=== PATIENT | male | born 1955 | race Caucasian/White ===

== ENCOUNTER 2019-05-10 17:20 | Inpatient (IN) ==
[2019-05-10 18:09] LABS: Basophils # 0.1 K/mcL (0.0-0.2); Basophils % 1.1 %; Eosinophils % 0.7 %; Hematocrit 33.8 % (37.5-50.1); Hemoglobin 11.9 g/dL (12.9-16.9); Immature Granulocytes % 0.5 % (0-4); Lymphocytes # 2.2 K/mcL (0.6-4.6); Lymphocytes % 35.5 %; Mean Corpuscular HGB Conc 35.2 g/dL (31.6-35.5); Mean Corpuscular Hemoglobin 36.3 pg (28.0-33.3); Mean Platelet Volume 10.2 fL (9.4-12.4); Monocytes # 0.9 K/mcL (0.0-1.3); Monocytes % 15.1 %; Neutrophils # 2.9 K/mcL (1.6-8.9); Platelet Count 181 K/mcL (140-400); Red Blood Count 3.28 M/mcL (4.19-5.50); Red Cell Distribution Width 13.3 % (11.5-14.5); Segmented Neutrophils % 47.1 %; White Blood Count 6.1 K/mcL (4.3-11.1)
[2019-05-10] MEDS ORDERED: Tdap (Boostrix) Vaccine 0.5 ML SYRINGE IM ONE (18:17)
[2019-05-10 18:21] LABS: Bilirubin,Urine Negative (Negative); Blood,Urine Negative (Negative); Clarity,Urine Clear (Clear); Color,Urine Yellow (Yellow); Glucose,Urine (UA) Normal (Normal); Ketones,Urine Negative (Negative); Leukocyte Esterase,Urine Negative (Negative); Nitrite,Urine Negative (Negative); PH,Urine 6.5 pH Units (5.0-8.0); Protein,Urine Negative (Neg-Trace); Urobilinogen,Urine Normal (Normal)
[2019-05-10 18:54] LABS: Amphetamine Screen,Urine Negative ng/mL (Cutoff=1000); Barbiturate Screen,Urine Negative ng/mL (Cutoff=200); Benzodiazepines Screen,Urine Negative ng/mL (Cutoff=200); Cannabinoid Screen,Urine Negative ng/mL (Cutoff = 50); Cocaine Screen,Urine Negative ng/mL (Cutoff= 300); Opiate Screen,Urine Negative ng/mL (Cutoff=300); Phencyclidine Screen,Urine Negative ng/mL (Cutoff=25)
[2019-05-10 18:58] LABS: Acetaminophen < 10 mcg/mL (10-20); BUN/Creatinine Ratio 9 (6-26); Blood Urea Nitrogen 4 mg/dL (8-23); Calcium 8.3 mg/dL (8.6-10.3); Carbon Dioxide 21 mEq/L (23-29); Chloride 107 mEq/L (98-107); Chol/HDL Ratio 2.8 (0-4.9); Cholesterol 164 mg/dL (< 200); Ethanol 432 mg/dL (Less than 10); Glucose 78 mg/dL (70-105); HDL Cholesterol 59 mg/dL (40-59); LDL Cholesterol,Calculated 93 mg/dL (0-99); Osmolality,Calculated 284 (280-300); Potassium 3.7 mEq/L (3.5-5.1); Salicylate < 2.5 mg/dL (15.0-30.0); Sodium 139 mEq/L (136-145); Triglycerides 61 mg/dL (< 150); eGFR For African Americans > 60 (> 60); eGFR For Non-African Americans > 60 (> 60)
[2019-05-10 19:02] LABS: Estimated Average Glucose 111 mg/dl
[2019-05-10] MEDS ORDERED: *HR* OxyCODONE/APAP 10/325 TABLET PO PRN (23:08)
[2019-05-10] MEDS ORDERED: clonazePAM 1 MG TABLET PO PRN (23:08)
[2019-05-10] MEDS ORDERED: traZODone 50 MG TABLET PO PRN (23:08)
[2019-05-10] MEDS ORDERED: Ondansetron 4 MG/2 ML VIAL IVP PRN (23:11)
[2019-05-10] MEDS ORDERED: *HR* LORazepam 2 MG/ML VIAL IVP PRN ×3 (23:14)
[2019-05-10] MEDS ORDERED: *HR* Promethazine 25 MG/ML VIAL IVP PRN (23:14)
[2019-05-10] MEDS: Ringers Solution, Lactated 1,000 ML IVC SCH (23:47)
[2019-05-10] MEDS: Gabapentin 300 MG CAPSULE PO SCH (23:50)
[2019-05-11] MEDS: Ringers Solution, Lactated 1,000 ML IVC SCH (05:00)
[2019-05-11] MEDS: *HR* Heparin 5,000 UNIT/ML VIAL SQ SCH ×2 (06:17→18:38)
[2019-05-11 08:53] LABS: BUN/Creatinine Ratio 13 (6-26); Blood Urea Nitrogen 6 mg/dL (8-23); Calcium 7.8 mg/dL (8.6-10.3); Carbon Dioxide 23 mEq/L (23-29); Chloride 108 mEq/L (98-107); Ethanol 81 mg/dL (Less than 10); Glucose 67 mg/dL (70-105); Magnesium 1.4 mg/dL (1.6-2.6); Osmolality,Calculated 290 (280-300); Phosphorous 3.3 mg/dL (2.7-4.5); Sodium 142 mEq/L (136-145); eGFR For African Americans > 60 (> 60); eGFR For Non-African Americans > 60 (> 60)
[2019-05-11] MEDS: Cholecalciferol (D-3) 1,000 UNIT (25MCG) TABLET PO SCH (09:30)
[2019-05-11] MEDS: Thiamine (B-1) 100 MG TABLET PO SCH (09:30)
[2019-05-11] MEDS: Magnesium Oxide 400 MG TABLET PO SCH (09:30)
[2019-05-11] MEDS: Gabapentin 300 MG CAPSULE PO SCH ×3 (09:31→20:04)
[2019-05-11] MEDS: Aspirin Enteric Coated 81 MG Tablet PO SCH (09:39)
[2019-05-11] MEDS: Folic Acid 1 MG TABLET PO SCH (09:39)
[2019-05-11] MEDS: Metoprolol XL (24 HR) Succ 25 MG TAB.ER.24H PO SCH (09:40)
[2019-05-11] MEDS: Vitamin B Complex/Vit C/Vit E 1 EACH TABLET PO SCH (09:40)
[2019-05-12 05:06] LABS: Basophils % 0.6 %; Eosinophils # 0.1 K/mcL (0.0-0.6); Eosinophils % 1.3 %; Hematocrit 30.3 % (37.5-50.1); Hemoglobin 10.5 g/dL (12.9-16.9); Immature Granulocytes % 0.5 % (0-4); Lymphocytes # 1.7 K/mcL (0.6-4.6); Lymphocytes % 26.6 %; Mean Corpuscular HGB Conc 34.7 g/dL (31.6-35.5); Mean Corpuscular Hemoglobin 36.8 pg (28.0-33.3); Mean Corpuscular Volume 106.3 fL (83.0-100.0); Mean Platelet Volume 10.8 fL (9.4-12.4); Monocytes # 0.8 K/mcL (0.0-1.3); Monocytes % 12.8 %; Neutrophils # 3.7 K/mcL (1.6-8.9); Platelet Count 126 K/mcL (140-400); Red Blood Count 2.85 M/mcL (4.19-5.50); Red Cell Distribution Width 13.2 % (11.5-14.5); Segmented Neutrophils % 58.2 %; White Blood Count 6.3 K/mcL (4.3-11.1)
[2019-05-12] MEDS: *HR* Heparin 5,000 UNIT/ML VIAL SQ SCH (05:08)
[2019-05-12] MEDS ORDERED: Nicotine 14 MG PATCH.TD24 TD SCH (05:18)
[2019-05-12 05:36] LABS: BUN/Creatinine Ratio 17 (6-26); Blood Urea Nitrogen 7 mg/dL (8-23); Calcium 7.9 mg/dL (8.6-10.3); Carbon Dioxide 24 mEq/L (23-29); Chloride 101 mEq/L (98-107); Glucose 71 mg/dL (70-105); Magnesium 1.4 mg/dL (1.6-2.6); Osmolality,Calculated 272 (280-300); Phosphorous 2.4 mg/dL (2.7-4.5); Potassium 3.4 mEq/L (3.5-5.1); Sodium 133 mEq/L (136-145); eGFR For African Americans > 60 (> 60); eGFR For Non-African Americans > 60 (> 60)
[2019-05-12 07:08] VITALS: BP 141/74
[2019-05-12] MEDS ORDERED: Magnesium Oxide 400 MG TABLET PO ONE (07:46)
[2019-05-12] MEDS: Thiamine (B-1) 100 MG TABLET PO SCH (09:39)
[2019-05-12] MEDS: Gabapentin 300 MG CAPSULE PO SCH (09:39)
[2019-05-12] MEDS: Folic Acid 1 MG TABLET PO SCH (09:39)
[2019-05-12] MEDS: Cholecalciferol (D-3) 1,000 UNIT (25MCG) TABLET PO SCH (09:40)
[2019-05-12] MEDS: Aspirin Enteric Coated 81 MG Tablet PO SCH (09:40)
[2019-05-12] MEDS: Metoprolol XL (24 HR) Succ 25 MG TAB.ER.24H PO SCH (09:40)
[2019-05-12] MEDS: Vitamin B Complex/Vit C/Vit E 1 EACH TABLET PO SCH (09:41)
[2019-05-12] MEDS: Magnesium Oxide 400 MG TABLET PO SCH (09:41)
== END 2019-05-12 12:05 | disposition home or self-care (01) | DRG 885 ==
LOC: EMEROOARM 17:20 → 3ANU 17:20 → SUATTDRO 21:35 → 3ANU 22:51
PROVIDERS: ADMIT Internal Medicine; ATTEND Internal Medicine